=== PATIENT | male | born 1970 | race Two or more races ===

== ENCOUNTER 2020-01-20 03:15 | Emergency (ER) | payer MEDICAID ==
[~2020-01-20] VITALS: Ht 177.8 cm; Wt 75.7 kg
[2020-01-20 03:20] VITALS: BP_SYST 152
--- NOTE | 2020-01-20 03:20 | NUR ---
Patient to ER bed 8 to gown for evaluation. Side rails up. Report given to
--- NOTE | 2020-01-20 03:25 | NUR ---
PT AAO AND AMBULATORY C/O LEFT EARS PAIN FOR 2-3 DAYS. PT ATTEMPTED TO TREAT WITH HOME MEASURES AND WAS UNSUCCESSFUL. PT REPORTS PAIN IN LEFT EAR 6/10 AND THAT IT HURTS TO OPEN HIS MOUTH.
--- NOTE | 2020-01-20 03:35 | NUR ---
ER Dr. DAVENPORT at bedside examining patient.
[2020-01-20] MEDS ORDERED: INSULIN REGULAR, HUMAN 10 UNITS/0.1 ML INJ IVP ONE (04:15)
[2020-01-20] MEDS ORDERED: NACL 0.9% 1,000 ML IV ONE (04:15)
--- NOTE | 2020-01-20 04:40 | NUR ---
VSS no s/s of acute distress Resting on gurney rails up
[2020-01-20] MEDS ORDERED: DOCUSATE SODIUM 100 MG/10 ML UDC PO ONE (04:45)
[2020-01-20] MEDS ORDERED: DOCUSATE SODIUM 100 MG CAPSULE PO ONE (05:13)
--- NOTE | 2020-01-20 05:38 | NUR ---
Dr. Ashley bedside for Pt update / re-eval
[2020-01-20 05:47] LABS: BILIRUBIN,URINE NEGATIVE (NEGATIVE); BLOOD, URINE NEGATIVE (NEGATIVE); CLARITY/URINE CLEAR (CLEAR); COLOR,URINE YELLOW (YELLOW); GLUCOSE,URINE 3+ (NEGATIVE); KETONES,URINE NEGATIVE (NEGATIVE); LEUKOCYTE ESTERASE ,URINE NEGATIVE (NEGATIVE); NITRITE, URINE NEGATIVE (NEGATIVE); PROTEIN URINE NEGATIVE (NEGATIVE); UROBILINOGEN,URINE 0.2 (0.2-1.0)
[2020-01-20 06:20] VITALS: BP_SYST 152
--- NOTE | 2020-01-20 06:20 | NUR ---
Patient given written and verbal discharge instructions and verbalizes understanding. ER MD discussed with patient the results and treatment provided. Patient in stable condition. ID arm band removed. IV catheter removed intact and dressing applied, no active bleeding. Patient educated on pain management and to follow up with PMD. Pain Scale 0/10 Opportunity for questions provided and answered.
== END 2020-01-20 06:20 | disposition home or self-care (01) ==
LOC: SED 03:15
DX: H61.21 Impacted cerumen, right ear (principal); R73.9 Hyperglycemia, unspecified
CPT/HCPCS: 81003; 82962; 96361; 96374; 99283; J1815; J7030